=== PATIENT | male | born 1970 | race Caucasian/White ===

== ENCOUNTER 2021-01-05 08:37 | Inpatient (IN) ==
[2021-01-05 09:44] LABS: Basophils % 0.3 %; Eosinophils # 0.1 K/mcL (0.0-0.6); Eosinophils % 1.1 %; Hematocrit 40.1 % (37.5-50.1); Hemoglobin 13.1 g/dL (12.9-16.9); Immature Granulocytes % 1.3 % (0-4); Lymphocytes % 9.9 %; Mean Corpuscular HGB Conc 32.7 g/dL (31.6-35.5); Mean Corpuscular Hemoglobin 29.8 pg (28.0-33.3); Mean Corpuscular Volume 91.1 fL (83.0-100.0); Mean Platelet Volume 10.7 fL (9.4-12.4); Monocytes # 0.7 K/mcL (0.0-1.3); Monocytes % 6.8 %; Neutrophils # 8.5 K/mcL (1.6-8.9); Platelet Count 161 K/mcL (140-400); Red Cell Distribution Width 13.4 % (11.5-14.5); Segmented Neutrophils % 80.6 %; White Blood Count 10.5 K/mcL (4.3-11.1)
[2021-01-05 09:59] LABS: Acetaminophen < 10 mcg/mL (10-20); Alanine Aminotransferase 30 Units/L (7-52); Albumin 4.4 g/dL (3.5-5.7); Albumin/Globulin Ratio 1.3 (1.1-2.2); Alkaline Phosphatase 87 Units/L (34-104); Aspartate Amino Transferase 26 Units/L (13-39); BUN/Creatinine Ratio 13 (6-26); Bilirubin,Direct 0.1 mg/dL (0.0-0.2); Bilirubin,Indirect 0.6 mg/dL (0.0-1.0); Bilirubin,Total 0.7 mg/dL (0.3-1.0); Blood Urea Nitrogen 12 mg/dL (6-20); Calcium 9.1 mg/dL (8.6-10.3); Carbon Dioxide 26 mEq/L (23-29); Chloride 104 mEq/L (98-107); Ethanol < 10 mg/dL (Less than 10); Globulin 3.3 g/dL (2.4-3.5); Glucose 118 mg/dL (70-105); Osmolality,Calculated 287 (280-300); Potassium 3.7 mEq/L (3.5-5.1); Salicylate < 2.5 mg/dL (15.0-30.0); Sodium 138 mEq/L (136-145); Total Protein 7.7 g/dL (6.4-8.9); eGFR For African Americans > 60 (> 60); eGFR For Non-African Americans > 60 (> 60)
[2021-01-05 11:15] LABS: Bilirubin,Urine Negative (Negative); Blood,Urine Negative (Negative); Clarity,Urine Clear (Clear); Color,Urine Yellow (Yellow); Glucose,Urine (UA) Normal (Normal); Hyaline Casts,Urine Few per lpf (None Seen); Ketones,Urine Trace mg/dL (Negative); Leukocyte Esterase,Urine Negative (Negative); Mucus,Urine Few per lpf (None-Few); Nitrite,Urine Negative (Negative); PH,Urine 5.5 pH Units (5.0-8.0); Protein,Urine 50 mg/dL (Neg-Trace); RBC,Urine 0-3 per hpf (0-3); Specific Gravity,Urine 1.028 (1.010-1.025); Urobilinogen,Urine Normal (Normal); WBC,Urine 0-3 per hpf (0-3)
[2021-01-05 11:57] LABS: Amphetamine Screen,Urine Positive ng/mL (Cutoff=1000); Barbiturate Screen,Urine Negative ng/mL (Cutoff=200); Benzodiazepines Screen,Urine Negative ng/mL (Cutoff=200); Cannabinoid Screen,Urine Negative ng/mL (Cutoff = 50); Cocaine Screen,Urine Positive ng/mL (Cutoff= 300); Opiate Screen,Urine Negative ng/mL (Cutoff=300); Phencyclidine Screen,Urine Negative ng/mL (Cutoff=25)
[2021-01-05] MEDS ORDERED: Nicotine 2 MG GUM BC PRN (13:35)
[2021-01-05] MEDS ORDERED: *HR* LORazepam 2 MG/ML VIAL IM PRN (13:35)
[2021-01-05] MEDS ORDERED: haloperidoL 5 MG TABLET PO PRN (13:35)
[2021-01-05] MEDS ORDERED: Haloperidol Lactate 5 MG/ML VIAL IM PRN (13:35)
[2021-01-05] MEDS ORDERED: *HR* LORazepam 1 MG TABLET PO PRN (13:35)
[2021-01-05] MEDS ORDERED: Mag Hydrox/Al Hydrox/Simeth 30 ML UDC PO PRN (13:35)
[2021-01-05] MEDS ORDERED: Acetaminophen 325 MG TABLET PO PRN (13:35)
[2021-01-05] MEDS: Nicotine 14 MG PATCH.TD24 TD SCH (15:25)
[2021-01-05] MEDS: traZODone 50 MG TABLET PO PRN (20:41)
[2021-01-05] MEDS: hydrOXYzine pamoate 25 MG CAPSULE PO PRN (20:41)
[2021-01-06] MEDS: Nicotine 14 MG PATCH.TD24 TD SCH (08:55)
[2021-01-06] MEDS: Multivit/Ca/Min/Fe/FA 1 TAB TABLET PO SCH (12:24)
[2021-01-06] MEDS: BuPROPion XL (24 HR) 150 MG TABLET PO SCH (12:24)
[2021-01-07] MEDS: Nicotine 14 MG PATCH.TD24 TD SCH (08:42)
[2021-01-07] MEDS: Multivit/Ca/Min/Fe/FA 1 TAB TABLET PO SCH (08:43)
[2021-01-07] MEDS: BuPROPion XL (24 HR) 150 MG TABLET PO SCH (08:44)
[2021-01-07] MEDS: hydrOXYzine pamoate 25 MG CAPSULE PO PRN (20:44)
[2021-01-07] MEDS: traZODone 50 MG TABLET PO PRN (20:44)
[2021-01-08] MEDS: Multivit/Ca/Min/Fe/FA 1 TAB TABLET PO SCH (08:50)
[2021-01-08] MEDS: BuPROPion XL (24 HR) 150 MG TABLET PO SCH (08:50)
[2021-01-08] MEDS: Nicotine 14 MG PATCH.TD24 TD SCH (08:50)
[2021-01-08] MEDS: hydrOXYzine pamoate 25 MG CAPSULE PO PRN (20:58)
[2021-01-08] MEDS: traZODone 50 MG TABLET PO PRN (20:58)
[2021-01-09] MEDS: Ibuprofen 400 MG TABLET PO PRN (05:53)
[2021-01-09] MEDS: Multivit/Ca/Min/Fe/FA 1 TAB TABLET PO SCH (09:21)
[2021-01-09] MEDS: Nicotine 14 MG PATCH.TD24 TD SCH (09:21)
[2021-01-09] MEDS: BuPROPion XL (24 HR) 150 MG TABLET PO SCH (09:21)
[2021-01-09] MEDS: traZODone 50 MG TABLET PO SCH (21:04)
[2021-01-09] MEDS: hydrOXYzine pamoate 25 MG CAPSULE PO SCH (21:04)
[2021-01-09] MEDS: Neosporin OINT 15 GM TUBE TP SCH (21:08)
[2021-01-10] MEDS: BuPROPion XL (24 HR) 150 MG TABLET PO SCH (09:07)
[2021-01-10] MEDS: Nicotine 14 MG PATCH.TD24 TD SCH (09:07)
[2021-01-10] MEDS: Multivit/Ca/Min/Fe/FA 1 TAB TABLET PO SCH (09:08)
[2021-01-10] MEDS: Ibuprofen 400 MG TABLET PO PRN (09:10)
[2021-01-10] MEDS ORDERED: BuPROPion XL (24 HR) 150 MG TABLET PO ONE (10:05)
[2021-01-10] MEDS: Neosporin OINT 15 GM TUBE TP SCH ×2 (10:40→20:05)
[2021-01-10] MEDS: cephALEXin 500 MG CAPSULE PO SCH ×2 (12:33→20:04)
[2021-01-10] MEDS ORDERED: Ibuprofen 800 MG TABLET PO PRN (12:36)
[2021-01-10] MEDS: MOM Conc 10 ML UD.LIQ PO PRN (16:31)
[2021-01-10 17:37] LABS: Bilirubin,Urine Negative (Negative); Blood,Urine Negative (Negative); Clarity,Urine Clear (Clear); Color,Urine Yellow (Yellow); Glucose,Urine (UA) Normal (Normal); Ketones,Urine Negative (Negative); Leukocyte Esterase,Urine Negative (Negative); Nitrite,Urine Negative (Negative); PH,Urine 7.5 pH Units (5.0-8.0); Protein,Urine Trace mg/dL (Neg-Trace); Urobilinogen,Urine Normal (Normal)
[2021-01-10] MEDS: Thiamine (B-1) 100 MG TABLET PO SCH (17:47)
[2021-01-10] MEDS: Acetaminophen 325 MG TABLET PO SCH (17:47)
[2021-01-10] MEDS: polyethylene glycoL 3350 17 GM POWD.PACK PO SCH (17:47)
[2021-01-10] MEDS: Folic Acid 1 MG TABLET PO SCH (20:04)
[2021-01-10] MEDS: traZODone 50 MG TABLET PO SCH (20:04)
[2021-01-10] MEDS: hydrOXYzine pamoate 25 MG CAPSULE PO SCH (20:04)
[2021-01-10 20:11] LABS: BUN/Creatinine Ratio 22 (6-26); Blood Urea Nitrogen 21 mg/dL (6-20); Calcium 9.3 mg/dL (8.6-10.3); Carbon Dioxide 21 mEq/L (23-29); Chloride 101 mEq/L (98-107); Glucose 122 mg/dL (70-105); Osmolality,Calculated 278 (280-300); Potassium 5.2 mEq/L (3.5-5.1); Sodium 132 mEq/L (136-145); eGFR For African Americans > 60 (> 60); eGFR For Non-African Americans > 60 (> 60)
[2021-01-11 01:16] LABS: Hematocrit 41.9 % (37.5-50.1); Hemoglobin 14.1 g/dL (12.9-16.9); Mean Corpuscular HGB Conc 33.7 g/dL (31.6-35.5); Mean Corpuscular Hemoglobin 29.2 pg (28.0-33.3); Mean Corpuscular Volume 86.7 fL (83.0-100.0); Platelet Count 200 K/mcL (140-400); Red Blood Count 4.83 M/mcL (4.19-5.50); Red Cell Distribution Width 12.7 % (11.5-14.5); White Blood Count 10.5 K/mcL (4.3-11.1)
[2021-01-11] MEDS: Multivit/Ca/Min/Fe/FA 1 TAB TABLET PO SCH (08:42)
[2021-01-11] MEDS: Thiamine (B-1) 100 MG TABLET PO SCH (08:42)
[2021-01-11] MEDS: Acetaminophen 325 MG TABLET PO SCH ×4 (08:43→20:13)
[2021-01-11] MEDS: cephALEXin 500 MG CAPSULE PO SCH ×2 (08:43→20:13)
[2021-01-11] MEDS: BuPROPion XL (24 HR) 150 MG TABLET PO SCH (08:43)
[2021-01-11] MEDS: Nicotine 14 MG PATCH.TD24 TD SCH (08:44)
[2021-01-11 09:30] LABS: BUN/Creatinine Ratio 13 (6-26); Blood Urea Nitrogen 11 mg/dL (6-20); Calcium 10.1 mg/dL (8.6-10.3); Carbon Dioxide 26 mEq/L (23-29); Chloride 102 mEq/L (98-107); Glucose 121 mg/dL (70-105); Osmolality,Calculated 281 (280-300); Potassium 4.5 mEq/L (3.5-5.1); Sodium 135 mEq/L (136-145); eGFR For African Americans > 60 (> 60); eGFR For Non-African Americans > 60 (> 60)
[2021-01-11] MEDS: polyethylene glycoL 3350 17 GM POWD.PACK PO SCH (09:45)
[2021-01-11] MEDS: Neosporin OINT 15 GM TUBE TP SCH ×2 (09:46→20:13)
[2021-01-11] MEDS: Folic Acid 1 MG TABLET PO SCH (10:20)
[2021-01-11] MEDS ORDERED: Milk and Molasses Enema 200 ML RC ONE (13:13)
[2021-01-11] MEDS: hydrOXYzine pamoate 25 MG CAPSULE PO SCH (20:13)
[2021-01-11] MEDS: traZODone 50 MG TABLET PO SCH (20:13)
[2021-01-11] MEDS: MOM Conc 10 ML UD.LIQ PO PRN (20:53)
[2021-01-12] MEDS: Acetaminophen 325 MG TABLET PO SCH ×4 (04:03→18:21)
[2021-01-12] MEDS: polyethylene glycoL 3350 17 GM POWD.PACK PO SCH (10:49)
[2021-01-12] MEDS: cephALEXin 500 MG CAPSULE PO SCH ×2 (10:50→20:34)
[2021-01-12] MEDS: BuPROPion XL (24 HR) 150 MG TABLET PO SCH (10:50)
[2021-01-12] MEDS: Multivit/Ca/Min/Fe/FA 1 TAB TABLET PO SCH (10:50)
[2021-01-12] MEDS: Thiamine (B-1) 100 MG TABLET PO SCH (10:51)
[2021-01-12] MEDS: Neosporin OINT 15 GM TUBE TP SCH ×2 (10:51→20:35)
[2021-01-12] MEDS: Folic Acid 1 MG TABLET PO SCH (10:51)
[2021-01-12] MEDS: Nicotine 14 MG PATCH.TD24 TD SCH (10:55)
[2021-01-12] MEDS: traZODone 50 MG TABLET PO SCH (20:33)
[2021-01-12] MEDS: hydrOXYzine pamoate 25 MG CAPSULE PO SCH (20:34)
[2021-01-13] MEDS: Acetaminophen 325 MG TABLET PO SCH ×3 (00:30→09:05)
[2021-01-13] MEDS: Nicotine 14 MG PATCH.TD24 TD SCH (09:03)
[2021-01-13] MEDS: polyethylene glycoL 3350 17 GM POWD.PACK PO SCH (09:03)
[2021-01-13] MEDS: Folic Acid 1 MG TABLET PO SCH (09:05)
[2021-01-13] MEDS: BuPROPion XL (24 HR) 150 MG TABLET PO SCH (09:11)
[2021-01-13] MEDS: Multivit/Ca/Min/Fe/FA 1 TAB TABLET PO SCH (09:12)
[2021-01-13] MEDS: cephALEXin 500 MG CAPSULE PO SCH (09:12)
[2021-01-13] MEDS: Thiamine (B-1) 100 MG TABLET PO SCH (09:12)
[2021-01-13] MEDS: Neosporin OINT 15 GM TUBE TP SCH (09:53)
[2021-01-13 10:12] VITALS: BP 101/62
== END 2021-01-13 12:40 | disposition home or self-care (01) | DRG 817 ==
LOC: EMEROOARM 08:37 → 1ANU 12:50
PROVIDERS: ADMIT Psychiatry & Neurology Psychiatry; ATTEND Psychiatry & Neurology Psychiatry